=== PATIENT | male | born 1945 | race African-American/Black ===

== ENCOUNTER 2016-10-15 18:10 | Inpatient (IN) ==
[2016-10-15 18:57] LABS: URINE CULTURE PL NEEDED? NO
[2016-10-15 19:08] LABS: BILIRUBIN URINE NEGATIVE (NEGATIVE); BLOOD URINE NEGATIVE (NEGATIVE); CLARITY CLEAR (CLEAR); COLOR YELLOW; LEUKOCYTES URINE NEGATIVE (NEGATIVE); NITRITE URINE NEGATIVE (NEGATIVE); PROTEIN URINE NEGATIVE (NEGATIVE); URINE EPITHELIAL CELLS <10 /HPF (<10); URINE WBC <10 /HPF (<10); UROBILINOGEN URINE NORMAL
[2016-10-15 19:09] LABS: URINE CAST NONE SEEN /LPF; URINE CRYSTAL NONE SEEN /HPF; URINE SOURCE CLEAN CATCH
[2016-10-15] MEDS ORDERED: ASPIRIN PO STA (21:33)
[2016-10-15 21:54] LABS: MANUAL DIFF NEEDED? NO
[2016-10-15 21:59] LABS: BASO% 0.3 % (0.0-0.8); EOS# 0.08 X1000 (0.0-0.7); EOS% 1.2 % (0.0-10.0); HEMATOCRIT 34.9 % (42.0-52.0); HEMOGLOBIN 12.3 g/dL (14.0-18.0); IMM GRAN# 0.01 X1000 (0.0-0.04); IMM GRAN% 0.2 % (0.0-0.5); LYMPH# 2.96 X1000 (1.2-3.4); LYMPH% 45.9 % (20.5-51.1); MCH 34.6 PG (27-31); MCHC 35.2 g/dL (33-37); MCV 98.3 FL (81-99); MONO# 0.54 X1000 (0.11-0.59); MONO% 8.4 % (1.7-9.3); MPV 10.1 FL (7.4-10.4); PLT 148 X1000 (130-400); RBC 3.55 XMIL (4.7-6.1)
[2016-10-15 22:20] LABS: INR 1.01 (0.86-1.15); PROTIME 13.6 Seconds (12.1-15.5); PTT PL 25.2 Seconds (22.6-43.9)
[2016-10-15 22:21] LABS: AGAP 15; ALBUMIN 4.1 g/dL (3.5-5.0); ALKALINE PHOSPHATASE 75 U/L (32-122); BUN 21 mg/dL (8-22); CALCIUM 9.1 mg/dL (8.8-10.2); CHLORIDE 100 mmol/L (98-107); COSMO 288; GOT 19 U/L (10-34); GPT 18 U/L (10-44); MAGNESIUM 1.7 mg/dL (1.5-2.7); SODIUM 135 mmol/L (136-145); TCO2 21 mmol/L (25-35); TOTAL PROTEIN 6.7 g/dL (6.3-8.3)
[2016-10-15 22:27] LABS: CK PROFILE 205 U/L (24-204)
[2016-10-15 22:43] LABS: CK INDEX 1.9 (0.0-2.5)
--- NOTE | 2016-10-15 23:37 | EKG Report ---
Test Performed on : 10/15/2016 9:55:09 PM Test Reason : CP Blood Pressure : / mmHG Vent. Rate : 073 BPM Atrial Rate : 073 BPM P-R Int : 168 ms QRS Dur : 090 ms QT Int : 386 ms P-R-T Axes : 027 003 -27 degrees QTc Int : 425 ms Normal sinus rhythm. Moderate voltage criteria for LVH, may be normal variant T wave abnormality, consider inferolateral ischemia Abnormal ECG When compared with ECG of 16-MAR-2015 10:38, No significant change was found Unconfirmed Result
[2016-10-15] MEDS ORDERED: HUMULIN R (PARKWAY) ONE (23:55)
[2016-10-16] MEDS ORDERED: HUMULIN R (PARKWAY) SUBQ ONE (00:02)
[2016-10-16] MEDS ORDERED: NS 1,000 ML IV ONE ×2 (00:44→00:46)
[2016-10-16] MEDS ORDERED: ZOFRAN IV PRN (00:46)
[2016-10-16] MEDS ORDERED: MORPHINE IV PRN ×2 (00:46→07:10)
[2016-10-16] MEDS ORDERED: NS 1,000 ML ONE (05:56)
[2016-10-16] MEDS ORDERED: LEVSIN-SL SL PRN (10:20)
[2016-10-16] MEDS ORDERED: BENAZEPRIL PO SCH (10:30)
[2016-10-16] MEDS ORDERED: AMLODIPINE PO SCH (10:30)
--- NOTE | 2016-10-16 11:19 | Diag Imaging Result Document ---
PROCEDURE NAME: CHEST-2 VIEWS - 10/15/2016 CHEST X-RAY, TWO VIEWS: COMPARISON: 08/01/2013. FINDINGS: The lungs are normally expanded and clear. Heart size and mediastinal contours are normal. No pneumothorax or pleural effusion. IMPRESSION: Negative exam.
[2016-10-16] MEDS: HUMALOG DOSE (PARKWAY) SUBQ SCH ×3 (12:13→21:21)
[2016-10-16 12:14] LABS: HEMATOCRIT 35.6 % (42.0-52.0); HEMOGLOBIN 12.5 g/dL (14.0-18.0); MCH 34.2 PG (27-31); MCHC 35.1 g/dL (33-37); MCV 97.5 FL (81-99); MPV 11.2 FL (7.4-10.4); RBC 3.65 XMIL (4.7-6.1)
[2016-10-16 12:27] LABS: HEMOGLOBIN A1C 9.4 % (4.8-6.0)
[2016-10-16 12:46] LABS: AGAP 12; ALBUMIN 3.9 g/dL (3.5-5.0); ALKALINE PHOSPHATASE 66 U/L (32-122); BUN 13 mg/dL (8-22); CHLORIDE 101 mmol/L (98-107); COSMO 276; GOT 25 U/L (10-34); GPT 19 U/L (10-44); POTASSIUM 3.8 mmol/L (3.5-5.1); SODIUM 134 mmol/L (136-145); TCO2 21 mmol/L (25-35); TOTAL PROTEIN 6.6 g/dL (6.3-8.3)
--- NOTE | 2016-10-16 14:18 | HISTORY AND PHYSICAL ---
PRIMARY CARE PHYSICIAN: Dr. Osmany Crespo. CHIEF COMPLAINT: My blood sugar is high. HISTORY OF PRESENT ILLNESS: This is a 71-year-old gentleman with a history of diabetes mellitus, hypertension and prostate cancer. He presented to the emergency room stating that his blood sugars have been running high. He states his blood sugars normally run around the 180s but over the last 3 weeks he has run 200-350s and he noticed when blood sugars up to 300- 350 range he has some blurred vision and dizziness. He states this does resolve once blood sugars decrease. He denies any change in his diet or change in his medications. He has not been sick. He was found to have a blood sugar of 370 on admission. He was given a L bolus, 6 units of Humulin insulin and admitted for further evaluation and treatment. PAST MEDICAL HISTORY: Diabetes mellitus, hypertension, gout, prostate cancer. PAST SURGICAL HISTORY: Back surgery, prostate surgery and penile implant. SOCIAL HISTORY: He denies alcohol, tobacco or illicit drug use. ALLERGIES: No known drug allergies. HOME MEDICATIONS: Amlodipine/benazepril 10/40 two daily, clonidine 0.1 mg b.i.d., Zocor 20 at bedtime, metformin ER 1000 mg daily, Levsin 1-2 puffs t.i.d. p.r.n., Flexeril 10 p.o. b.i.d., Coreg 25 mg p.o. b.i.d. REVIEW OF SYSTEMS: A 14 point review of systems discussed with patient and pertinent positives stated in HPI. He denies chest pain, palpitations, syncope, shortness of breath, cough, fever, chills, recent weight loss or weight gain, nausea, vomiting, diarrhea, constipation, black or bloody vomitus, black or bloody stools, hematuria, dysuria, frequency, urgency. PHYSICAL EXAMINATION: GENERAL: This is 71-year-old male who is lying in the bed in no distress. VITAL SIGNS: Blood pressure is 147/72 with heart rate of 69, respirations are 18, temperature is 98.1 degrees oral with room air saturation of 98-99%. HEENT: Head is normocephalic, atraumatic. Pupils equal, round, react to light. EOMs are intact. Sclerae anicteric. Mucous membranes are moist. NECK: Supple. Trachea midline. CARDIOVASCULAR: Regular rate and rhythm S1, S2 appreciated. PULMONARY: Breath sounds are clear with no increased work of breathing noted. GASTROINTESTINAL: Abdomen soft, nontender, nondistended. Bowel sounds in all 4 quadrants. BACK: No CVAT. No spine tenderness. MUSCULOSKELETAL: Good range of motion to joints. EXTREMITIES: No clubbing, cyanosis, or edema. Calves nontender. Pulses are palpable x4. NEUROLOGIC: He is alert and oriented x3. DIAGNOSTICS: WBC is 6.4 with hemoglobin 12.3, hematocrit 34.9 and platelets of 148,000. Sodium is 135, potassium 4, BUN 21, creatinine 1.1 with glucose 370. Troponin less than 0.010. Urinalysis 1+ bacteria with less than 10 microscopic white blood cells, is nitrite negative and acetone was small. ASSESSMENT AND PLAN: 1. Type 2 diabetes mellitus with hyperglycemia. The patient states he has had no recent change in his diet nor his medications, he has not been ill. We will add Januvia. Continue to monitor blood sugars. Will check an A1c. 2. Hypertension. Will identify his home medications and continue as appropriate. 3. Gout aware. 4. Tobacco use aware. I did talk to the patient regarding tobacco use and we did discuss smoking cessation with ways to assist as well, at this point he says no interest in stopping. Dictated by AMANDA Amin for Joe Nix MD cc: AMANDA Amin MD
[2016-10-16] MEDS: LOTENSIN PO SCH (14:43)
[2016-10-16] MEDS: NORVASC PO SCH (14:43)
[2016-10-16] MEDS: JANUVIA PO SCH (14:43)
[2016-10-16] MEDS: INDOCIN PO SCH ×2 (14:43→18:06)
[2016-10-16] MEDS: COREG PO SCH ×2 (14:44→21:21)
[2016-10-16] MEDS ORDERED: ZOCOR PO SCH (21:00)
[2016-10-16] MEDS: FLEXERIL PO SCH (21:21)
[2016-10-17] MEDS: HUMALOG DOSE (PARKWAY) SUBQ SCH ×2 (06:41→15:53)
[2016-10-17] MEDS ORDERED: GLUCOPHAGE XR PO SCH (08:00)
[2016-10-17] MEDS: JANUVIA PO SCH (08:35)
[2016-10-17] MEDS: INDOCIN PO SCH ×2 (08:35→15:52)
[2016-10-17] MEDS: LOTENSIN PO SCH (08:35)
[2016-10-17] MEDS: FLEXERIL PO SCH (08:36)
[2016-10-17] MEDS: COREG PO SCH (08:36)
[2016-10-17] MEDS: NORVASC PO SCH (08:36)
[2016-10-17 12:26] VITALS: BP 134/73
--- NOTE | 2016-10-17 22:26 | DISCHARGE SUMMARY ---
ADMISSION DATE: 10/16/2016 DISCHARGE DATE: 10/17/2016 DISCHARGE DIAGNOSIS: 1. Type 2 diabetes with poor home control with an A1c at 9.4. 2. Hyponatremia, secondary to his elevated blood sugars. 3. Initial acetone positive, negative on discharge. 4. Hypertension. 5. Gout. 6. Chronic tobacco abuse. CONSULTATIONS: None. PROCEDURES: None. HOSPITAL COURSE: Patient is a 71-year-old male who presented to the emergency department secondary to significant hyperglycemia. He certainly was becoming acidotic with an acetone positive. He thankfully had an uneventful hospital course. He was given IV fluids to start with. He was placed on Januvia which he tolerated very well. He was continued on his home medications as noted in the HPI of Zocor, metformin, indomethacin, Flexeril, Coreg, Lotensin, and Norvasc. On discharge, his blood sugars had improved tremendously. It was down to 200. DISPOSITION: Patient will be discharged home. Prescription for Januvia and Glucophage were written. Discussed with patient that he needs to avoid sugary and high carbohydrate foods. He will continue to follow with Osmany Crespo MD as an outpatient. Discussed with him that he needs to discuss with Dr. Crespo getting in with nutrition counseling. I also discussed with him that it is unlikely that Januvia and metformin alone will be enough, and he certainly will need to continue his sliding scale insulin. We may need to have another oral agent at Dr. Crespo's discretion. TIME SPENT: 35 minutes was spent in discharge plan. cc: Joe Nix MD
--- NOTE | 2016-10-21 18:49 | ED EKG INTERP ---
This chart was entered by Kristen Powers Scribe, acting as scribe for Roger Padilla DO. EKG Interpretation - EKG Time of EKG reading by physician:: 21:55 EKG Read and Signed by:: Roger Padilla EKG Interpretation (*Must complete 3 of following elements*): Abnormal Rate: 73 Rhythm: NSR [place]: normal QRS: LVH, other (T WAVE ABNORMALITY, CONSIDER INFEROLATERAL ISCHEMIA) This chart was documented by the indicated scribe, (Kristen Powers Scribe) and accurately reflects the services I performed and decisions made by Randy powell Deepak K., DO, as attested by the provider's signature.
== END 2016-10-17 16:15 | disposition home or self-care (01) ==
LOC: P.ED 18:10 → P.MEDSURG 10-16 01:12
PROVIDERS: ATTEND Family Medicine